=== PATIENT | male | born 1995 | race Two or more races ===

== ENCOUNTER 2018-07-31 21:19 | Emergency (ER) | payer MEDICAID ==
[~2018-07-31] VITALS: Ht 170.2 cm; Wt 83.9 kg
[2018-07-31] MEDS ORDERED: SODIUM CHLORIDE 0.9% 1,000 ML IVB ONE (21:45)
[2018-07-31 22:23] LABS: Basophils # (auto) 0.1 uL; Basophils % (auto) 0.4 % (0.0-2.0); Eosinophils # (auto) 0.2 uL; Eosinophils % (auto) 1.3 % (0.0-7.0); Hematocrit 45.6 % (41.0-53.0); Hemoglobin 15.3 g/dL (13.5-17.5); Lymphocytes # (auto) 2.6 uL; Mean Corpuscular Hemoglobin 28.6 pg (28.0-32.0); Mean Corpuscular Hgb Conc. 33.5 g/dL (32.0-36.0); Mean Corpuscular Volume 85.4 fL (80.0-100.0); Monocytes # (auto) 0.5 uL; Monocytes % (auto) 3.9 % (0.0-12.0); Neutrophils # (auto) 9.7 uL; Neutrophils % (auto) 74.4 % (37.0-80.0); Nucleated Red Blood Cells % 0.1 %; Platelet Count (auto) 361 10^3/uL (140-450); Red Blood Cells 5.34 10^6/uL (4.5-5.90); Red Cell Distribution Width 12.9 % (11.8-14.3); White Blood Cell 13.1 10^3/uL (4.4-10.8)
[2018-07-31 22:37] LABS: Albumin 3.6 g/dL (3.4-5.0); BUN/Creatinine Ratio 8.8; Calcium 8.4 mg/dL (8.5-10.1); Potassium 4.1 mmol/L (3.5-5.1)
[2018-07-31 22:38] LABS: Salicylate < 1.7 mg/dL (2.8-20.0)
[2018-07-31 22:40] LABS: Bilirubin, Total 0.3 mg/dL (0.2-1.0); Total Protein 7.7 g/dL (6.4-8.2)
[2018-07-31 22:43] LABS: Acetaminophen < 2.0 ug/mL (10-30)
[2018-08-01 02:21] LABS: Amphetamine Screen, Urine NEGATIVE (NEGATIVE); Barbiturate Scree,Urine NEGATIVE (NEGATIVE); Benzodiazephine Screen, Urine NEGATIVE (NEGATIVE); Cannabinoid Screen, Urine POSITIVE (NEGATIVE); Cocaine Screen, Urine NEGATIVE (NEGATIVE); Opiate Scree,Urine NEGATIVE (NEGATIVE); Phencyclidine Screen, Urine NEGATIVE (NEGATIVE)
[2018-08-01 02:29] LABS: Urine Bacteria FEW /hpf (None Seen); Urine Blood Negative /uL (Negative); Urine Hyaline Cast MOD /lpf (0 - 2); Urine Mucus FEW (None Seen); Urine Specific Gravity 1.019 (1.001-1.035); Urine WBC 1 /hpf (0 - 3)
[2018-08-01 04:19] LABS: Albumin 3.2 g/dL (3.4-5.0); BUN/Creatinine Ratio 9.6; Calcium 8.4 mg/dL (8.5-10.1); Potassium 4.3 mmol/L (3.5-5.1)
[2018-08-01 04:29] LABS: Bilirubin, Total 0.2 mg/dL (0.2-1.0)
[2018-08-01 04:30] VITALS: BP 124/90
== END 2018-08-01 05:05 | disposition home or self-care (01) ==
LOC: EDBD 21:19 → ER 21:24
DX: F41.9 Anxiety disorder, unspecified (principal); F19.10 Other psychoactive substance abuse, uncomplicated; F12.90 Cannabis use, unspecified, uncomplicated
CPT/HCPCS: 36415; 71045; 80053; 80307; 80320; 80329; 81001; 85025; 93005